=== PATIENT | male | born 1995 | race American Indian/Alaskan Native ===

== ENCOUNTER 2019-05-11 16:26 | Emergency (ER) | payer OTHER ==
[2019-05-11 16:41] VITALS: BP 146/83
--- NOTE | 2019-05-11 17:45 | XRay Report ---
RIGHT ANKLE 3 VIEWS INDICATION / CLINICAL INFORMATION: MAIN: trauma, pain; trauma, pain; TREADMILL FELL ON LEG TODAY; NO PREVIOUS INJURY. COMPARISON: None available. FINDINGS: No significant skeletal abnormality Signer Name: Jan Constantino MD FACR Signed: 05/11/2019 5:41 PM Workstation Name: [id number]
--- NOTE | 2019-05-11 17:46 | XRay Report ---
RIGHT FOOT 3 VIEWS INDICATION / CLINICAL INFORMATION: MAIN: trauma, pain; trauma, pain; TREADMILL FELL ON LEG TODAY; NO PREVIOUS INJURY. COMPARISON: None available. FINDINGS: No significant skeletal abnormality Signer Name: Jan Constantino MD FACR Signed: 05/11/2019 5:42 PM Workstation Name: [id number]
--- NOTE | 2019-05-11 17:46 | XRay Report ---
RIGHT KNEE 3 VIEWS INDICATION / CLINICAL INFORMATION: MAIN: trauma, pain; TREADMILL FELL ON LEG TODAY; NO PREVIOUS INJURY. COMPARISON: None available. FINDINGS: No significant skeletal abnormality Signer Name: Jan Constantino MD FACAlli Signed: 05/11/2019 5:42 PM Workstation Name: [id number]
[2019-05-11] MEDS ORDERED: traMADol 50 MG TAB PO ONE (20:43)
--- NOTE | 2019-05-11 21:06 | Emergency Department Report ---
ED Lower Extremity HPI - General Chief Complaint: Extremity Injury, Lower Stated Complaint: RT FOOT WORK INJURY/PAIN Time Seen by Provider: 05/11/19 20:43 Source: patient Mode of arrival: Ambulatory Limitations: No Limitations - History of Present Illness Initial Comments: Patient's attended 3-year-old male who presents for right knee and ankle pain status post treadmill machine versus leg. Patient states he was cleaning another treadmill machine when the arm from the strep machine fell and hit his knee and leg. There is no laceration abrasion or bleeding. Patient remains ambulatory with steady gait. . Complains of 5/10 pain requested x-rays. MD Complaint: knee injury, ankle injury, foot injury -: hour(s) (5) Injury: Knee: Right, Ankle: Right, Foot: Right Type of Injury: blunt Place: other (work ) Severity: moderate Severity scale (0 -10): 4 Improves With: rest Worsens With: weight bearing, movement, palpation Context: direct blow Associated Symptoms: snap/pop sensation, ambulatory - Related Data Previous Rx's Medication Instructions Recorded Last Taken Type Naproxen 500 mg PO BID PRN #30 tablet 05/11/19 Unknown Rx Allergies Allergy/AdvReac Type Severity Reaction Status Date / Time peanut AdvReac Angioedema Verified 05/11/19 16:31 ED Review of Systems ROS: Stated complaint: RT FOOT WORK INJURY/PAIN Other details as noted in HPI Constitutional: denies: chills, fever Eyes: denies: eye pain, eye discharge, vision change ENT: denies: ear pain, throat pain Respiratory: denies: cough, shortness of breath, wheezing Cardiovascular: denies: chest pain, palpitations Endocrine: no symptoms reported Gastrointestinal: denies: abdominal pain, nausea, diarrhea Genitourinary: denies: urgency, dysuria Musculoskeletal: other (knee ankle and foot pain) Skin: denies: rash, lesions Neurological: denies: headache, weakness, paresthesias Psychiatric: denies: anxiety, depression Hematological/Lymphatic: denies: easy bleeding, easy bruising ED Past Medical Hx - Past Medical History Previous Medical History?: No - Surgical History Past Surgical History?: No - Social History Smoking Status: Never Smoker Substance Use Type: Marijuana - Medications Home Medications: Home Medications Medication Instructions Recorded Confirmed Last Taken Type Naproxen 500 mg PO BID PRN #30 tablet 05/11/19 Unknown Rx ED Physical Exam - General Limitations: No Limitations General appearance: alert, in no apparent distress - Head Head exam: Present: atraumatic, normocephalic - Eye Eye exam: Present: normal appearance, PERRL, EOMI Pupils: Present: normal accommodation - ENT ENT exam: Present: mucous membranes moist - Neck Neck exam: Present: normal inspection, full ROM. Absent: tenderness, meningismus, lymphadenopathy, thyromegaly - Expanded Neck Exam Expanded Neck exam: Absent: tenderness, midline deformity, anterior neck swelling, carotid bruit, tracheal deviation - Respiratory Respiratory exam: Present: normal lung sounds bilaterally, chest wall tenderness. Absent: respiratory distress, wheezes, stridor - Cardiovascular Cardiovascular Exam: Present: regular rate, normal rhythm, normal heart sounds. Absent: systolic murmur, diastolic murmur, rubs, gallop - GI/Abdominal GI/Abdominal exam: Present: soft, normal bowel sounds. Absent: distended, tenderness, guarding, rebound, rigid, bruit, hernia - Rectal Rectal exam: Present: deferred - Extremities Exam Extremities exam: Present: normal inspection, full ROM, normal capillary refill. Absent: tenderness - Expanded Lower Extremity Exam Right Knee exam: Present: full ROM, abrasion, full knee extension. Absent: tenderness, swelling, crepidus, dislocation, erythema, effusion, pain w/ pronation/supination, posterior draw sign, pain/laxity with valgus, pain/laxity with varus Ankle exam: Present: full ROM, tenderness. Absent: swelling, abrasion, laceration, ecchymosis, deformity, crepidus, dislocation, erythema, anterior draw sign Foot/Toe exam: Present: full ROM. Absent: tenderness, swelling, abrasion, laceration, ecchymosis, deformity, crepidus, dislocation, erythema, amputation, puncture wound, foreign body, tenderness at base of 5th metatarsal Neuro vascular tendon exam: Absent: pulse deficit, motor deficit, sensory deficit, tendon deficit, peroneal nerve deficit Gait: Positive: observed and normal - Back Exam Back exam: Present: normal inspection, full ROM. Absent: tenderness, muscle spasm, paraspinal tenderness, vertebral tenderness - Neurological Exam Neurological exam: Present: alert, oriented X3, CN II-XII intact, normal gait, reflexes normal. Absent: motor sensory deficit - Expanded Neurological Exam Expanded Patient oriented to: Present: person, place, time Speech: Present: fluid speech Cranial nerves: EOM's Intact: Normal, Gag Reflex: Normal, Tongue Deviation: Normal, Nystagmus: Normal, Facial Sensation: Normal Motor strength exam: RUE: 5, LUE: 5, RLE: 5, LLE: 5 Best Eye Response ([place]): (4) open spontaneously Best Motor Response ([place]): (6) obeys commands Best Verbal Response ([place]): (5) oriented [place] Total: 15 ED Course Vital Signs 05/11/19 16:38 Temperature 99.4 F Pulse Rate 94 H Respiratory 16 Rate Blood Pressure 146/83 O2 Sat by Pulse 98 Oximetry ED Lower Extremity MDM - Radiology Data Radiology results: report reviewed, image reviewed Ordering Physician: JENNA HERNANDEZ MD Date of Service: 05/11/19 Procedure(s): XR knee 3V RT Accession Number(s): [id number] cc: JENNA HERNANDEZ MD Fluoro Time In Minutes: RIGHT KNEE 3 VIEWS INDICATION / CLINICAL INFORMATION: MAIN: trauma, pain; TREADMILL FELL ON LEG TODAY; NO PREVIOUS INJURY. COMPARISON: None available. FINDINGS: No significant skeletal abnormality Signer Name: Jan Constantino MD FACR Signed: 05/11/2019 5:42 PM Workstation Name: [id number] Transcribed By: MS Dictated By: aJn Constantino MD Electronically Authenticated By: Jan Constantino MD Signed Date/Time: 05/11/191741 DD/ 41 TD/TT: Ordering Physician: JENNA HERNANDEZ MD Date of Service: 05/11/19 Procedure(s): XR foot 3+V RT Accession Number(s): [id number] cc: JENNA HERNANDEZ MD Fluoro Time In Minutes: RIGHT FOOT 3 VIEWS INDICATION / CLINICAL INFORMATION: MAIN: trauma, pain; trauma, pain; TREADMILL FELL ON LEG TODAY; NO PREVIOUS INJURY. COMPARISON: None available. FINDINGS: No significant skeletal abnormality Signer Name: Jan Constantino MD FACR Signed: 05/11/2019 5:42 PM Workstation Name: [id number] Transcribed By: MS Dictated By: Jan Constantino MD Electronically Authenticated By: Jan Constantino MD Signed Date/Time: 05/11/191741 DD/ 40 TD/TT: Ordering Physician: JENNA HERNANDEZ MD Date of Service: 05/11/19 Procedure(s): XR ankle 3+V RT Accession Number(s): [id number] cc: ED MD MARY Fluoro Time In Minutes: RIGHT ANKLE 3 VIEWS INDICATION / CLINICAL INFORMATION: MAIN: trauma, pain; trauma, pain; TREADMILL FELL ON LEG TODAY; NO PREVIOUS INJURY. COMPARISON: None available. FINDINGS: No significant skeletal abnormality Signer Name: Jan Constantino MD FACR Signed: 05/11/2019 5:41 PM Workstation Name: [email or web address] Transcribed By: MS Dictated By: Jan Constantino MD Electronically Authenticated By: Jan Constantino MD Signed Date/Time: 05/11/191740 DD/ 40 - Medical Decision Making xray neg, plan dc to home with with rx for nsaids prn, follow up with pcp in 2-3 days , dx: knee strain, ankle strain, foot strain. pt remains ambulatory with steady gait. Critical care attestation.: If time is entered above; I have spent that time in minutes in the direct care of this critically ill patient, excluding procedure time. ED Disposition Clinical Impression: Strain of right knee Qualifiers: Encounter type: initial encounter Qualified Code(s): S86.911A - Strain of unspecified muscle(s) and tendon(s) at lower leg level, right leg, initial encounter Right ankle strain Qualifiers: Encounter type: initial encounter Qualified Code(s): S96.911A - Strain of unspecified muscle and tendon at ankle and foot level, right foot, initial encounter Right foot strain Qualifiers: Encounter type: initial encounter Qualified Code(s): S96.911A - Strain of unspecified muscle and tendon at ankle and foot level, right foot, initial encounter Disposition: DC-01 TO HOME OR SELFCARE Is pt being admited?: No Does the pt Need Aspirin: No Condition: Stable Instructions: Ankle Exercises (GEN), Knee Exercises (GEN) Prescriptions: Naproxen 500 mg PO BID PRN #30 tablet PRN Reason: pain Referrals: [facility] [Outside] - 3-5 Days Forms: Work/School Release Form(ED) Time of Disposition: 21:15
== END 2019-05-11 21:30 | disposition home or self-care (01) ==
LOC: ED 16:26
DX: S86.911A Strain of unspecified muscle(s) and tendon(s) at lower leg level, right leg, initial encounter (principal); S96.911A Strain of unspecified muscle and tendon at ankle and foot level, right foot, initial encounter; F12.10 Cannabis abuse, uncomplicated; Z79.899 Other long term (current) drug therapy; Z91.010 Allergy to peanuts; W20.8XXA Other cause of strike by thrown, projected or falling object, initial encounter; Y93.89 Activity, other specified; Y92.89 Other specified places as the place of occurrence of the external cause; Y99.8 Other external cause status